=== PATIENT | female | born 1955 | race Caucasian/White ===

== ENCOUNTER 2018-07-07 17:39 | Emergency (ER) | payer MEDICARE, OTHER ==
[~2018-07-07] VITALS: Ht 165.1 cm; Wt 140.6 kg
[~2018-07-07 17:39] MED LIST: ALEVE220 MG PO; ASPIR 8181 MG PO; ASPIRIN EC81 M1 PO; AUGMENTIN 875875 MG PO; CARDIZEM CD180 MG PO; CARDIZEM30 MG PO; CARVEDILOL12.5 MG PO; CARVEDILOL3.125 MG PO; CENTRUM SILVER1 EAC4 PO; CIPRO500 MG PO; COUMADIN 10MG T10 M1 PO; COUMADIN 2 MG TA2 M1 PO; COUMADIN7.5 MG PO; CYCLOBENZAPRINE5 MG PO; DYAZIDE 37.5-21 EACH; FLEXERIL PO; FUROSEMIDE 40 M40 MG PO; FUROSEMIDE 80 M80 M1 PO; IBUPROFEN 200200 M1 PO; K-DUR 20 MEQ T20 MEQ PO; LISINOPRIL10 MG PO; MEDROL DOSPAK21 TA1 PO; METOLAZONE 5 MG5 MG PO; NAPROSYN500 MG PO; NEURONTIN 300300 M1 PO; NORCO 5-325 TA1 EACH PO; NYSTATIN1 EA10 MC; ONE DAILY HEAL1 EACH PO; PACERONE200 MG PO; SORINE 80 MG TA80 M1 PO; SORINE 80 MG TA80 MG PO; SOTALOL 120 MG120 M1 PO; UBIQUINOL100 MG PO; VICODIN 5-3001 EACH PO; VITAMIN B-1100 M1 PO; VITAMIN D400 UNI1 PO; XARELTO20 MG PO
[2018-07-07] MEDS ORDERED: ACETAMINOPHEN-1 EAC1 PO (18:25)
[2018-07-07 18:30] VITALS: BP 148/67
== END 2018-07-07 18:31 | disposition home or self-care (01) ==
LOC: M.ERS 17:39
DX: S16.1XXA Strain of muscle, fascia and tendon at neck level, initial encounter (principal); V69.09XA Driver of heavy transport vehicle injured in collision with other motor vehicles in nontraffic accident, initial encounter; Y93.89 Activity, other specified; Y92.89 Other specified places as the place of occurrence of the external cause; Y99.8 Other external cause status; E66.9 Obesity, unspecified; Z90.710 Acquired absence of both cervix and uterus

== ENCOUNTER → 2019-05-19 | Outpatient (CLI) | payer MEDICARE, OTHER ==
[~2019-05-19] MED LIST changes: +ACETAMINOPHEN-1 EAC1 PO
[2019-05-19 14:51] LABS: ALBUMIN 4.3 g/dL (3.4-5.0); DIRECT BILIRUBIN 0.1 mg/dL (<0.1-0.3); TOTAL BILIRUBIN 0.7 mg/dL (<0.1-1.0); TOTAL PROTEIN 8.8 g/dL (6.4-8.2)
== END ==
LOC: M.RAD 13:56
PROVIDERS: Internal Medicine Cardiovascular Disease
DX: J98.11 Atelectasis (principal); Z79.899 Other long term (current) drug therapy

== ENCOUNTER → 2019-12-13 | Outpatient (CLI) | payer MEDICARE, OTHER ==
[2019-12-13 14:10] LABS: ALBUMIN 3.9 g/dL (3.4-5.0); DIRECT BILIRUBIN 0.2 mg/dL (<0.1-0.3); TOTAL BILIRUBIN 0.7 mg/dL (<0.1-1.0); TOTAL PROTEIN 8.3 g/dL (6.4-8.2)
== END ==
LOC: M.RAD 13:12
PROVIDERS: Internal Medicine Cardiovascular Disease
DX: Z79.899 Other long term (current) drug therapy (principal)

== ENCOUNTER → 2020-07-17 | Outpatient (CLI) | payer MEDICARE, OTHER ==
[2020-07-17 12:47] LABS: ALBUMIN 3.5 g/dL (3.4-5.0); DIRECT BILIRUBIN 0.2 mg/dL (<0.1-0.3); TOTAL BILIRUBIN 0.7 mg/dL (<0.1-1.0); TOTAL PROTEIN 7.4 g/dL (6.4-8.2)
== END ==
LOC: M.LAB 11:20
PROVIDERS: ATTEND Internal Medicine Cardiovascular Disease
DX: J84.10 Pulmonary fibrosis, unspecified (principal); J98.4 Other disorders of lung; Z79.899 Other long term (current) drug therapy

== ENCOUNTER → 2020-07-20 | Outpatient (CLI) | payer MEDICARE, OTHER | LOC: M.CT 13:43 | PROVIDERS: ATTEND Internal Medicine Cardiovascular Disease | DX: I51.7 Cardiomegaly (principal); R93.89 Abnormal findings on diagnostic imaging of other specified body structures; I25.10 Atherosclerotic heart disease of native coronary artery without angina pectoris; E04.2 Nontoxic multinodular goiter; Z79.899 Other long term (current) drug therapy ==

== ENCOUNTER → 2020-09-25 | Outpatient (CLI) | payer MEDICARE, OTHER | LOC: M.RAD 12:17 | PROVIDERS: ATTEND Internal Medicine Cardiovascular Disease | DX: R93.89 Abnormal findings on diagnostic imaging of other specified body structures (principal); Z79.899 Other long term (current) drug therapy ==

== ENCOUNTER → 2021-04-01 | Outpatient (CLI) | payer MEDICARE, OTHER ==
--- NOTE | 2021-04-01 14:29 | 2DMMODE ---
[place] [address] 2 D/M-MODE ECHOCARDIOGRAM Name: ZAIDA ANDINON Room: [facility]#: [id number] Admission: 04/01/21 Attend Phys: Sasha Haley RN Discharge: Date of : 51 Date of Service: 04/01/21 1428 Report #: [id number] THIS REPORT FOR: cc: Ehsan Cooper MD, Matthew D MD Holkins,Venkata Smith MD [facility] ~ APPROVED REPORT Study performed: 04/01/2021 12:52:20 EXAM: Comprehensive 2D, Doppler, and color-flow Echocardiogram Patient Location: Out-Patient BSA: 2.32 HR: 96 bpm BP: 130/80 mmHg Other Information Study Quality: Good Indications Atrial Fibrillation Cardiomyopathy 2D Dimensions IVSd: 15.28 (7-11mm) LVOT Diam: 20.44 (18-24mm) LVDd: 39.86 mm PWd: 12.09 (7-11mm) Ascending Ao: 30.68 (22-36mm) LVDs: 25.97 (25-40mm) Aortic Root: 29.96 mm Volumes Left Atrial Volume (Systole) LA ESV Index: 29.80 mL/m2 Aortic Valve AoV Peak Bari.: 1.28 m/s AO Peak Gr.: 6.53 mmHg LVOT Max P.78 mmHg AO Mean Gr.: 3.66 mmHg LVOT Mean P.24 mmHg LVOT Max V: 1.09 m/s AO V2 VTI: 17.23 cm LVOT Mean V: 0.68 m/s NIGHAT (VTI): 3.19 cm2 LVOT V1 VTI: 16.76 [place] [address] 2 D/M-MODE ECHOCARDIOGRAM Name: ZAIDA ANDINO Room: [facility]#: [id number] Admission: 04/01/21 Attend Phys: Sasha Haley RN Discharge: Date of : 51 Date of Service: 04/01/21 1428 Report #: [id number] E/A Ratio: 5.14 MV Decel. Time: 165.76 ms MV E Max Bari.: 1.10 m/s MV PHT: 48.07 ms MVA (PHT): 4.58 cm2 TDI E/Lateral E': 7.33 E/Medial E': 8.46 Medial E' Bari.: 0.13 m/s Lateral E' Bari.: 0.15 m/s Pulmonary Valve PV Peak Bari.: 1.06 m/s PV Peak Gr.: 4.52 mmHg Left Ventricle The left ventricle is normal size. There is normal LV segmental wall motion. Mild to moderate concentric left ventricular hypertrophy. Left ventricular systolic function is borderline. LVEF is 50-55%. This study is not technically sufficient to allow evaluation of the LV diastolic function due to atrial fibrillation. Right Ventricle The right ventricle is normal size. The right ventricular systolic function is normal. Atria Left atrium is moderately dilated. The right atrium size is normal. Aortic Valve Mild aortic valve sclerosis. Trace aortic regurgitation. There is no aortic valvular stenosis. Mitral Valve Mild mitral annular calcification. Trace mitral regurgitation. No evidence of mitral valve stenosis. Tricuspid Valve The tricuspid valve is normal in structure. There is no tricuspid valve regurgitation noted. Pulmonic Valve The pulmonary valve is normal in structure. There is no pulmonic valvular regurgitation[place] [address] 2 D/M-MODE ECHOCARDIOGRAM Name: ZAIDA ANDINO CORTEZ Room: [facility]#: [id number] Admission: 04/01/21 Attend Phys: Sasha Haley RN Discharge: Date of : 51 Date of Service: 04/01/21 1428 Report #: [id number] The aortic root is normal in size. IVC is normal in size and collapses >50% with inspiration. Pericardium There is no pericardial effusion. <Conclusion> The left ventricle is normal size. Mild to moderate concentric left ventricular hypertrophy. Left ventricular systolic function is borderline. LVEF is 50-55%. This study is not technically sufficient to allow evaluation of the LV diastolic function due to atrial fibrillation. The right ventricle is normal size. Left atrium is moderately dilated. Mild aortic valve sclerosis. Trace aortic regurgitation. There is no aortic valvular stenosis. Mild mitral annular calcification. Trace mitral regurgitation. No evidence of mitral valve stenosis. The tricuspid valve is normal in structure. IVC is normal in size and collapses >50% with inspiration. There is no pericardial effusion. There is normal LV segmental wall motion. <ELECTRONICALLY SIGNED> By: Venkata Riddle MD, [facility] 04/01/21 1428 1428 1428 Venkata Riddle MD, FACC /INF
== END ==
LOC: M.CRD 03-27 13:00
PROVIDERS: ATTEND Registered Nurse
DX: I48.0 Paroxysmal atrial fibrillation (principal); R55 Syncope and collapse; I42.8 Other cardiomyopathies

== ENCOUNTER 2021-05-17 17:04 | Inpatient (IN) | payer MEDICARE, OTHER ==
[~2021-05-17] VITALS: Ht 165.1 cm; Wt 118.9 kg
--- NOTE | ~2021-05-17 | EMS ---
[place] [address] EMS Patient Care Report Name: ZAIDA ANDINO Room: [address] IN [facility]#: [id number] Admission: 05/17/21 Attend Phys: Erica Bryant Discharge: Date of : 51 Report #: [id number] THIS REPORT FOR: //name// Report Transmitted: 05/18/2021 15:50 EMS Care Summary [facility] Incident [id number] @ 05/17/2021 15:58 Incident Location [address] [place] [address] Patient ZAIDA ANDINO Female, 65 Years 1955 Patient Address [address] [place] [address] Patient History Other,Atrial Fibrillation, Patient Allergies No known allergies, Patient Medications Flexeril, Xarelto, Potassium, Losartan, Vicodin, Abilify, Aleve, Furosemide, Diltiazem, Chief Complaint No complaints of injury/illness Disposition Transported No Lights/[place] Dispatch Reason Falls Transported To [facility] Narrative Dispatch: [facility] was dispatched for a female patient who had fallen [facility] [address] [place] [address] EMS Patient Care Report Name: ZAIDA ANDINO Room: [address] IN [facility]#: [id number] Admission: 05/17/21 Attend Phys: Erica Bryant Discharge: Date of : 51 Report #: [id number] approx. 3 days prior. Unknown injuries. Med 1 copied tones and went en route emergent. Chief Complaint: Med 1 arrived on scene to find the patient lying prone on the floor of her bedroom. Patient is alert and does not appear to be in any distress or discomfort. Patient access was difficult due to hoarding. Multiple boxes were removed from the living room and hallway leading to the patient. Patient states she does not have any complaints of injury/illness, she had fallen and couldn't get up. History of present illness/LINDA: Patient states she was attempting to get into bed when she fell over boxes, and slid down her bed. Patient states she did not lose consciousness or hit her head. Patient states she had fallen approx. 3 days prior to EMS arrival. Family called 911 after finding the patient on the floor, and was unable to assist the patient up. Assessment: Airway: Clear, patent, and self maintained. Breathing: Clear, and equal bilaterally. Non labored. Circulation: Skin is pink, warm, and dry. Strong radial pulses. Disability: A&OX4, GCS 15. Exposures: No life threats were found. See "assessments" tab for further. Reason for ambulance: Patient had fallen 3 days prior, unable to get up. Requesting EMS treatment and transport to [facility]. Treatments: ALS assessment. 5 lead EKG showing atrial fibrillation. 20G IV LAC with LR. Vitals monitored throughout transport. Summary: With the assistance of EMS, the patient was placed onto the cot, secured in place, and placed into the ambulance for transport. The patient was placed onto the monitor and an IV was established. Med 1 went en route non emergent to [facility]. The patient's overall condition remained unchanged throughout transport. Radio report was given with no further questions or orders received. Med 1 arrived at destination and the patient was taken to room 15 in the ED where she was sheet transferred onto the bed. Report was given and signatures and paperwork were received. Med 1 returned back in service. Initial Vitals @16:21P: 120,R: 18,BP: 108/70,Glucose: 142,SpO2: 98, @16:56P: 130,R: 18,BP: 113/60,SpO2: 97, @16:41P: 145,R: 18,BP: 132/98,SpO2: 98, @16:51P: 133,R: 18,BP: 136/73,SpO2: 97, @16:26P: 126,R: 18,BP: 106/47,GCS: 15,SpO2: 98,Revised Trauma: 12, [address] [place] [address] EMS Patient Care Report Name: ZAIDA ANDINO Room: [address] ADM IN .R.#: [id number] Admission: 05/17/21 Attend Phys: Erica Bryant Discharge: Date of : 51 Report #: [id number] Assessments @16:05MENTAL:Person Oriented,Time Oriented,Event Oriented,Place Oriented,SKIN:HEENT:LUNG SOUNDS:ABDOMEN:PELVIS//GI:EXTREMITIES:Capillary Refill: Right Upper: < 2 Sec,PULSE:Radial: 2+ Normal,NEURO:@16:30MENTAL:Person Oriented,Time Oriented,Place Oriented,Event Oriented,SKIN:HEENT:LUNG SOUNDS:ABDOMEN:PELVIS//GI:EXTREMITIES:Capillary Refill: Right Upper: < 2 Sec,PULSE:Radial: 2+ Normal,NEURO: Impression No Complaints or Injury/Illness Noted Procedures @16:04ALS AssessmentResponse: UnchangedSucceeded@16:22Normal Saline (.9% NaCl) 400cc (20 ga) Site: Antecubital-LeftResponse: UnchangedSucceeded Timeline 15:56,Call Received 15:58,Dispatched 15:58,En Route 16:02,On Scene 16:04,At Patient 16:04,ALS Assessment,Response: UnchangedSucceeded, 16:21,BP: 108/70 M,PULSE: 120,RR: 18 R,SPO2: 98 Ox,ETCO2: ,B,PAIN: ,GCS: , 16:22,Normal Saline (.9% NaCl) 400cc 20 ga Site: Antecubital-Left,Response: UnchangedSucceeded, 16:24,Depart Scene 16:26,BP: 106/47 M,PULSE: 126,RR: 18 R,SPO2: 98 Ox,ETCO2: ,BG: ,PAIN: ,GCS: 15, 16:41,BP: 132/98 M,PULSE: 145,RR: 18 R,SPO2: 98 Ox,ETCO2: ,BG: ,PAIN: ,GCS: , 16:51,BP: 136/73 M,PULSE: 133,RR: 18 R,SPO2: 97 Ox,ETCO2: ,BG: ,PAIN: ,GCS: , 16:56,BP: 113/60 M,PULSE: 130,RR: 18 R,SPO2: 97 Ox,ETCO2: ,BG: ,PAIN: ,GCS: , 16:58,At Destination 18:03,Call Closed Disclaimer v1.1 Copyright 2020 [employer] This EMS Care Summary contains data elements from the applicable legal record (which may be displayed differently). It is designed to provide pertinent information for the following purposes: continuity of care, clinical quality, and state data reporting. The complete legal record is available to ED staff and administrators of the receiving hospital in [employer]s Patient Tracker. All data is provided "as is."
[2021-05-17 17:09] VITALS: BP 142/74
[2021-05-17 18:01] LABS: ABSOLUTE BASOPHILS 0.1 thou/uL (0.0-0.2); ABSOLUTE LYMPHOCYTES 1.2 thou/uL (0.8-5.3); ABSOLUTE MONOCYTES 0.9 thou/uL (0.0-1.2); ABSOLUTE NEUTROPHILS 7.6 thou/uL (1.6-8.1); BASOPHILS 0.5 %; EOSINOPHILS 0.4 %; HEMATOCRIT 39.5 % (37.0-47.0); HEMOGLOBIN 13.4 gm/dL (12.0-15.0); LYMPHOCYTES 12.6 %; MCV 85.3 fL (80.0-100.0); MONOCYTES 8.8 %; MPV 7.7 fl. (7.2-11.1); NUCLEATED RBCS 0 /100WBC; PLATELET COUNT* 465 thou/uL (150-400); POLYS 77.7 %; RBC 4.63 mil/uL (4.20-5.00); WBC 9.8 thou/uL (4.0-11.0)
[2021-05-17 18:08] LABS: CREATININE 1.2 mg/dL (0.6-1.3); POTASSIUM 3.5 mmol/L (3.5-5.1)
[2021-05-17 18:11] LABS: CALCIUM 12.6 mg/dL (8.5-10.1)
[2021-05-17 18:19] LABS: ALBUMIN 2.9 g/dL (3.4-5.0); TOTAL BILIRUBIN 1.1 mg/dL (<0.1-1.0); TOTAL PROTEIN 8.2 g/dL (6.4-8.2)
[2021-05-17 18:27] LABS: URINE BILIRUBIN NEGATIVE (Negative); URINE BLOOD TRACE (Negative); URINE CLARITY CLEAR; URINE COLOR YELLOW; URINE GLUCOSE-RANDOM NEGATIVE (Negative); URINE KETONES NEGATIVE (Negative); URINE LEUKOCYTES-REFLEX 1+ (Negative); URINE PROTEIN TRACE (Negative); URINE SPECIFIC GRAVITY 1.025 (1.005-1.030)
[2021-05-17 18:34] LABS: URINE NITRITE-REFLEX POSITIVE (Negative)
[2021-05-17 18:37] LABS: SQUAMOUS 4-10 Moderate /LPF (0-3); URINE RBC 0-2 Rare /HPF (0-2); URINE WBC-REFLEX 0-5 Rare /HPF (0-5)
[2021-05-17 18:38] LABS: WBC CLUMPS Few (None Seen)
[2021-05-17 18:39] LABS: CRYSTALS None Seen /LPF (None Seen); HYALINE CASTS 0-3 Few /LPF (None Seen)
[2021-05-17 19:52] VITALS: BP 93/69
[2021-05-17 21:00] VITALS: BP 139/77
[2021-05-18] VITALS: BP 121/67
--- NOTE | 2021-05-18 04:23 | NUR ---
RECIEVED PT FROM ER ARROUND 2029, ORIENTED BUT FORGETFUL. PT WAS UNKEPT AND WITH RASH AND REDNESS ON HER LOWER ABDOMEN AND GROIN. PT WAS PARTIALLY BLIND AND TALKED ABOUT HER UP COMING CATARACT SX. ACCORDING TO HER, SHE HAD ON AND OFF SCIATIC NERVE PAIN. PT WAS AFIB AT 120-160. HIMS INFORMED WITH ORDERS MADE AND CARRIED OUT. PT HAVE REDNESS ON HER BOTH KNEES AND ABRAISION ON LEFT TOES. PT I PAIN WHEN RIGHT ARM IS MOVED. NO DISTRESS. CONTINUE MONITORING AND TOWARDS GOALS. HR AT 110-120.
[2021-05-18 04:26] VITALS: BP 117/67
[2021-05-18 08:00] VITALS: BP 141/72
[2021-05-18 12:00] VITALS: BP 122/61
[2021-05-18 13:11] LABS: ALBUMIN 2.7 g/dL (3.4-5.0); CREATININE 1.2 mg/dL (0.6-1.3); POTASSIUM 3.8 mmol/L (3.5-5.1); TOTAL BILIRUBIN 0.5 mg/dL (<0.1-1.0); TOTAL PROTEIN 7.9 g/dL (6.4-8.2)
[2021-05-18 13:12] LABS: CREATININE 1.2 mg/dL (0.6-1.3); PHOSPHORUS* 2.4 mg/dL (2.5-4.9)
[2021-05-18 13:13] LABS: CALCIUM 12.4 mg/dL (8.5-10.1); CALCIUM 12.7 mg/dL (8.5-10.1)
--- NOTE | 2021-05-18 13:59 | EKG ---
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 : 1955 Requested By: Nghia Mcnamara Order Number: [id number] MD: Joesph Llanos Measurements Intervals [place] Rate: 123 P: NE: QRS: 44 QRSD: 90 T: 261 QT: 345 QTc: 494 Interpretive Statements Atrial fibrillation Ventricular premature complex Nonspecific repol abnormality, diffuse leads Compared to ECG 05/24/2016 13:25:57 Ventricular premature complex(es) now present Early repolarization now present Sinus rhythm no longer present Electronically Signed On 05-18-2021 13:59:15 CDT by Joesph Llanos [email or web address] <ELECTRONICALLY SIGNED> By: Joesph Llanos MD, FACC 05/18/21 1359 1730 1730 Joesph Llanos MD, FACC /EPI
[2021-05-18 16:00] VITALS: BP 119/70
--- NOTE | 2021-05-18 18:39 | NUR ---
PATIENT RESTING IN BED. SAT 91% ON ROOM AIR. IV TO LEFT AC WITH NORMAL SALINE INFUSING AT 80ML/HR. CALCIUM 12.4, DOCTOR NOTIFIED NO NEW ORDERS. BED IN LOW/LOCKED POSTION. CALL LIGHT WITHIN REACH. X2 ASSIST TO BEDSIDE COMMODE. NO QUESTIONS OR CONCERNS VOICED.
[2021-05-18 20:00] VITALS: BP 134/64
[2021-05-19 00:10] VITALS: BP 138/77
--- NOTE | 2021-05-19 02:23 | NUR ---
PT ALERT ORIENTED. 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 ON RA. IV INFUSING.
[2021-05-19 03:45] VITALS: BP 120/70
[2021-05-19 04:03] LABS: ABSOLUTE LYMPHOCYTES 0.9 thou/uL (0.8-5.3); ABSOLUTE MONOCYTES 0.8 thou/uL (0.0-1.2); BASOPHILS 0.1 %; HEMATOCRIT 36.9 % (37.0-47.0); HEMOGLOBIN 12.1 gm/dL (12.0-15.0); LYMPHOCYTES 10.8 %; MCH 28.3 pg (26.0-34.0); MCHC 32.8 g/dL (28.0-37.0); MCV 86.3 fL (80.0-100.0); MONOCYTES 8.8 %; NUCLEATED RBCS 0 /100WBC; PLATELET COUNT* 383 thou/uL (150-400); POLYS 80.3 %; RBC 4.28 mil/uL (4.20-5.00); RDW-CV 15.4 % (10.5-14.5); WBC 8.8 thou/uL (4.0-11.0)
[2021-05-19 04:10] LABS: CREATININE 1.2 mg/dL (0.6-1.3); POTASSIUM 4.2 mmol/L (3.5-5.1)
[2021-05-19 04:15] LABS: CALCIUM 12.3 mg/dL (8.5-10.1)
[2021-05-19 04:16] LABS: CHOLESTEROL 227 mg/dL (<200); HDL CHOLESTEROL 40 mg/dL (>40); LDL CHOLESTEROL 163 mg/dL (<100); TC:HDL 5.7 Ratio (Not establshd); TRIGLYCERIDE 122 mg/dL (<150); VLDL 24 mg/dL (<40)
[2021-05-19 04:21] LABS: SERUM ASSESSMENT CLEAR
[2021-05-19 08:47] VITALS: BP 128/72
[2021-05-19 16:00] VITALS: BP 141/72
[2021-05-19 20:00] VITALS: BP 122/77
[2021-05-20] VITALS: BP 129/78
[2021-05-20 02:05] LABS: GLYCOHEMOGLOBIN (HGB A1C) 5.3 % (4.8-5.6)
[2021-05-20 04:00] VITALS: BP 142/85
[2021-05-20 04:17] LABS: ABSOLUTE EOSINOPHILS 0.3 thou/uL (0.0-0.7); ABSOLUTE LYMPHOCYTES 1.8 thou/uL (0.8-5.3); ABSOLUTE MONOCYTES 0.7 thou/uL (0.0-1.2); ABSOLUTE NEUTROPHILS 4.2 thou/uL (1.6-8.1); BASOPHILS 0.5 %; EOSINOPHILS 3.6 %; HEMATOCRIT 33.8 % (37.0-47.0); HEMOGLOBIN 11.3 gm/dL (12.0-15.0); LYMPHOCYTES 26.2 %; MCH 28.9 pg (26.0-34.0); MCHC 33.4 g/dL (28.0-37.0); MCV 86.5 fL (80.0-100.0); MONOCYTES 9.8 %; MPV 8.2 fl. (7.2-11.1); NUCLEATED RBCS 0 /100WBC; PLATELET COUNT* 312 thou/uL (150-400); POLYS 59.9 %; RBC 3.91 mil/uL (4.20-5.00); RDW-CV 15.5 % (10.5-14.5)
[2021-05-20 04:36] LABS: ALBUMIN 2.4 g/dL (3.4-5.0); CREATININE 1.2 mg/dL (0.6-1.3); POTASSIUM 3.8 mmol/L (3.5-5.1); TOTAL BILIRUBIN 0.2 mg/dL (<0.1-1.0); TOTAL PROTEIN 6.3 g/dL (6.4-8.2)
[2021-05-20 08:15] VITALS: BP 142/82
--- NOTE | 2021-05-20 10:53 | NUR ---
Nutrition: Pt admitted with weakness. Has cervical spine stenosis. Seen for high BMI today. Wt: 262#. Laying in bed on back during visit. Regular diet. Pt stated she is eating fine. Albumin 2.4, prealb 18.7. Pt had no nutrition questions at this time. Consider mild risk.
[2021-05-20 12:00] VITALS: BP 136/79
--- NOTE | 2021-05-20 16:10 | NUR ---
Pt is A&O. Resides at home alone. Normally independent. No DME. No HH. Hx of SNF at [facility]. Pt in agreement with going to SNF, faxed referral to [facility], Pt to dc there today, facility to pickle solution maker at 430. Faxed dc orders. Chart copied. Nurse report number is [phone]. Pt to update family/friend.
--- NOTE | 2021-05-20 16:23 | NUR ---
PT A&OX4 VSS, FORGETFUL AT TIMES. HX OF FALLS AT HOME, FALL PRECAUTIONS IN PLACE. A FIB/FLUTTER ON MONITOR. PT REMAINS ON ROOM AIR. LAST BM THIS SHIFT. INTERMITTENT INCONTINENCE. UP SBA W/ WALKER AND GAIT BELT. PT BELONGINGS PACKED AND ACCPOMPANIED PT TO IGNITE. REPORT CALLED TO [place]. 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
[2021-05-21 16:06] LABS: GLOBULIN TOTAL 3.5 g/dL (2.2-3.9); M-SPIKE Not Observed g/dL (Not Observed)
== END 2021-05-20 16:20 | DRG 690 ==
LOC: M.ERS 17:04 → M.TBA-ER 18:09 → M.2W 18:09
PROVIDERS: Family Medicine; Internal Medicine; Psychiatry & Neurology Neurology; ADMIT Internal Medicine; ATTEND Internal Medicine
DX: N39.0 Urinary tract infection, site not specified (principal); Z68.41 Body mass index [BMI] 40.0-44.9, adult; E83.52 Hypercalcemia; J32.4 Chronic pansinusitis; E03.9 Hypothyroidism, unspecified; M48.02 Spinal stenosis, cervical region; E66.9 Obesity, unspecified; M19.91 Primary osteoarthritis, unspecified site; B96.20 Unspecified Escherichia coli [E. coli] as the cause of diseases classified elsewhere; Z20.822 Contact with and (suspected) exposure to COVID-19; Z90.710 Acquired absence of both cervix and uterus; Z86.79 Personal history of other diseases of the circulatory system; Z79.01 Long term (current) use of anticoagulants; Z79.899 Other long term (current) drug therapy; Z91.14 Patient's other noncompliance with medication regimen

== ENCOUNTER → 2021-10-10 | Outpatient (CLI) | payer MEDICARE, OTHER | LOC: M.RAD 13:10 | PROVIDERS: ATTEND Family Medicine | DX: Z12.31 Encounter for screening mammogram for malignant neoplasm of breast (principal); D35.1 Benign neoplasm of parathyroid gland; N63.20 Unspecified lump in the left breast, unspecified quadrant; M81.0 Age-related osteoporosis without current pathological fracture; Z78.0 Asymptomatic menopausal state; Z91.89 Other specified personal risk factors, not elsewhere classified ==

== ENCOUNTER → 2021-10-22 | Outpatient (CLI) | payer MEDICARE, OTHER | LOC: M.ULTRA 09:50 | PROVIDERS: ATTEND Family Medicine | DX: N63.24 Unspecified lump in the left breast, lower inner quadrant (principal) ==

== ENCOUNTER → 2021-10-25 | Outpatient (CLI) | payer MEDICARE, OTHER ==
--- NOTE | 2021-11-12 11:07 | PATH ---
[address] [address] PATHOLOGY RPT PROCEDURE Name: AKILAH ROSALESN Room: [facility] Ton[place]#: [id number] Admission: 10/25/21 Date of : 51 Discharge: Report #: [id number] Path Case #: [id number] [facility] Accession Number: [id number] . 01 Material submitted: . breast - LEFT BREAST BIOPSY. Modifiers: left . 01 Clinical history: . LEFT BREAST MASS 7:00 2CMFN; .37 X .38 X .40 . 02 Diagnosis: Breast "left mass 7:00 2CFN", needle biopsy: - Papilloma/sclerosing papillary lesion, with focal atypical ductal hyperplasia. - Negative for malignancy. - Please see comment. LBQ 11/11/2021 1333 Local . 02 Comment: The biopsy of the left breast mass consists of a papillary/sclerosing lesion which demonstrates exuberant usual ductal hyperplasia, and in some areas based on some morphology, and the focal absence of CK5/6 reactivity, ER reactivity, and absent myoepithelial cells, a diagnosis of atypical ductal hyperplasia is favored. There is no evidence of malignancy. . The case is seen in co-review, with consensus, by Dr. Robin Viveros on 11/06/2021. (MLK/db; 11/07/2021) . 02 Electronically signed: . Jennifer Barajas MD, Pathologist NPI- [id number] . 01 Gross description: . Received in formalin labeled "Akilah Rosales, left breast" and further labeled on the requisition as "7:00 2 cm FN" are multiple cylindrical yellow-felton soft tissue cores measuring in aggregate 2.7 x 1.5 x 0.3 cm. The specimen is submitted entirely in cassettes A1-A3. The specimen is removed from the patient at 1401 and placed in formalin at 1402 on 10/25/2021. The specimen is removed from formalin at 1840 on 10/27/2021. ([facility]; 10/26/2021) PSYCHIATRIC/PSYCHIATRIC 10/26/2021 0821 Local . 02 Microscopic: . Immunohistochemical stain results (properly controlled) CK5/6 (A1, A2, A3) - Stains majority of ductal epithelial cells; some focally negative P63 (A1, A2, A3) - Stains peripheral ductal myoepithelial cells and [facility] [address] [place] [address] PATHOLOGY RPT PROCEDURE Name: AKILAH ROSALES Room: [facility] DEANDRE [place]#: [id number] Admission: 10/25/21 Date of : 51 Discharge: Report #: [id number] Path Case #: [id number] majority of intraductal myoepithelial cells Myosin (A1, A2, A3) - Stains peripheral ductal myoepithelial cells and majority of intraductal myoepithelial cells Calponin (A1, A2, A3) - Stains peripheral ductal myoepithelial cells and majority of intraductal myoepithelial cells ER (A1, A2, A3) - Patchy staining of intraductal epithelial cells . 02 Pathologist provided ICD-10: D24.2, N62 . 02 CPT . 630907, K36242, I22059 Specimen Comment: A courtesy copy of this report has been sent to [phone] Specimen Comment: [phone], Specimen Comment: Report sent to , DR BARKER / DR MCCLENDON Specimen Comment: A duplicate report has been generated due to demographic updates. Performed at: 01 [facility] [address] [facility] [address], [place] [id number] MD Zuhair Montes MD Phone: [phone] Performed at: [address] [facility] [id number] [id number] MD Bienvenido Gomez MD Phone: [phone]
== END ==
LOC: M.ULTRA 10-24 08:30
PROVIDERS: ATTEND Family Medicine
DX: D24.2 Benign neoplasm of left breast (principal); N62 Hypertrophy of breast; R92.8 Other abnormal and inconclusive findings on diagnostic imaging of breast

== ENCOUNTER → 2021-11-20 | Outpatient (CLI) | payer MEDICARE, OTHER ==
[~2021-11-20] MED LIST changes: +DILTIAZEM ER180 M2 PO; +KLOR-CON M2020 MEQ PO; +LASIX 80 MG TAB80 MG PO; +LOSARTAN POTASS50 MG PO; +MAPAP500 MG PO; +MOTRIN IB200 M2 PO; +VICODIN HP 10-1 EAC1 PO
== END | disposition home or self-care (01) ==
LOC: M.ULTRA 11:00
PROVIDERS: ATTEND Surgery
DX: C50.912 Malignant neoplasm of unspecified site of left female breast (principal); R92.1 Mammographic calcification found on diagnostic imaging of breast; F32.9 Major depressive disorder, single episode, unspecified; I48.91 Unspecified atrial fibrillation; I48.92 Unspecified atrial flutter; Z98.890 Other specified postprocedural states; Z79.899 Other long term (current) drug therapy; Z79.01 Long term (current) use of anticoagulants

== ENCOUNTER → 2021-12-02 | Outpatient (CLI) | payer MEDICARE, OTHER | LOC: M.LAB 10:52 | PROVIDERS: ATTEND Surgery | DX: Z01.812 Encounter for preprocedural laboratory examination (principal); Z20.822 Contact with and (suspected) exposure to COVID-19 ==

== ENCOUNTER → 2021-12-03 | Day surgery (SDC) | payer MEDICARE, OTHER ==
--- NOTE | ~2021-12-03 | OP ---
[address] [address] OPERATIVE REPORT Name: ZAIDA ANDINO CORTEZ Room: [facility].#: [id number] Admission: 12/03/21 Attend Phys: Fabiana Cox DO Discharge: Date of : 51 Report #: [id number] THIS REPORT FOR: cc: Ehsan Cooper MD, Matthew D MD [facility],Medical Records Staff ~ For Operative report details, please see the Post-Operative note. By: 0641Medical Records Staff DIANA /DARLINE
[2021-12-03 11:27] LABS: HEMATOCRIT 43.5 % (37.0-47.0); HEMOGLOBIN 14.1 gm/dL (12.0-15.0); MCHC 32.5 g/dL (28.0-37.0); MCV 89.4 fL (80.0-100.0); MPV 7.3 fl. (7.2-11.1); RBC 4.86 mil/uL (4.20-5.00); RDW-CV 16.6 % (10.5-14.5); WBC 6.2 thou/uL (4.0-11.0)
[2021-12-03 11:35] LABS: CALCIUM 10.3 mg/dL (8.5-10.1); CREATININE 0.9 mg/dL (0.6-1.3); POTASSIUM 4.4 mmol/L (3.5-5.1)
--- NOTE | 2021-12-03 12:59 | EKG ---
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 : 1955 Requested By: Fabiana Cox Order Number: [id number] Reading MD: Venkata Riddle Measurements Intervals [place] Rate: 63 P: 131 [place]: 234 QRS: 38 QRSD: 111 T: 49 QT: 458 QTc: 469 Interpretive Statements Atrial fibrillation with a moderate ventricular response Baseline wander in lead(s) V6 Compared to ECG 05/17/2021 17:30:00 The ventricular response to atrial fibrillation has decreased Nonspecific ST-T alterations have occurred Electronically Signed On 12-03-2021 12:59:14 SUSTAINABILITY ENGINEER by Venkata Riddle [email or web address] <ELECTRONICALLY SIGNED> By: Venkata Riddle MD, FACC 12/03/21 1259 1200 1200 Venkata Riddle MD, FAC /EPI
--- NOTE | 2021-12-10 12:06 | PATH ---
[address] [address] PATHOLOGY RPT PROCEDURE Name: ZAIDA ANDINO Room: [facility] M.Henry.#: [id number] Admission: 12/03/21 Date of : 51 Discharge: Report #: [id number] Path Case #: [id number] [facility] Accession Number: [id number] . 01 Material submitted: . breast - LEFT BREAST LUMPECTOMY. Modifiers: left . 01 Clinical history: . PAPILLOMA LEFT BREAST STITCHES: LONG LATERAL, SHORT SUPERIOR . 02 Diagnosis: Left breast lumpectomy: - Benign breast tissue with residual ductal papilloma adjacent to prior biopsy site (including biopsy clip and cylindrical marker), usual ductal epithelial hyperplasia, apocrine change and scattered luminal calcifications, negative for atypia. (ARIANA:geremias; 12/05/2021) S 12/05/2021 1309 Local . 02 Electronically signed: . Robin Viveros MD, Pathologist NPI- [id number] . 01 Gross description: . Fixative: Formalin Labeled: Left breast Specimen received: Intact but previously markedly compressed and as a result the surgical margins may be distorted Oriented: the stitches are designated per the requisition as long lateral and short superior Weight: 45 g Dimensions: 7.0 cm superior to inferior, 5.2 cm medial to lateral, 2.1 cm superficial to deep . The specimen is inked as follows: superior-red inferior-blue superficial-green deep-black lateral-orange medial-yellow . Sectioned from: Superior to inferior Number of slices: 17 Lesion: 1.2 cm superior to inferior, 0.6 cm medial to lateral and 0.8 cm superficial to deep Lesion located in slices 10-14 [place] [address] PATHOLOGY RPT PROCEDURE Name: ZAIDA ANDINO Room: [facility]#: [id number] Admission: 12/03/21 Date of : 51 Discharge: Report #: [id number] Path Case #: [id number] Located inferior (slice 15), adjacent to the mass is a suspicious fibrotic area (0.5 cm medial to lateral, 0.4 cm superficial to deep and 0.3 cm superior to inferior). If the fibrotic area is contiguous with the mass then the new dimensions would be 1.5 cm superior to inferior, 0.6 cm medial to lateral and 0.8 cm superficial to deep . Lesion distance to margins: 2.7 cm to superior 1.2 cm to inferior 0.6 cm to superficial, slice 13 and 14 0.5 cm to deep, slice 11 1.8 cm to lateral, slice 11 1.1 cm to medial, slice 13 . Biopsy clip: silver metallic clamp-like biopsy clip in slice 10 with a biopsy cavity in slices 12-14 that contains a clear, colorless, plastic cylinder containing mechanical parts. Uninvolved breast parenchyma: Fatty and homogenous with less than 5% fibrous tissue . The specimen is submitted as follows: A1: Slice 1, superior margin, represented A2: Slice 11, represented A3: Slice 12, represented A4: Slice 13, represented A5-A6: Slice 14, represented A7: Slice 15 represented, to show suspicious fibrous tissue, entirely submitted A8: Slice 17, inferior margin, represented . Cold ischemic time: 13 minutes Time placed in formalin: 29 hours ([facility]; 12/04/2021) DKA/DKA 12/04/2021 1441 Local . 02 Pathologist provided ICD-10: D24.2, N62 . 02 CPT . 834361 Specimen Comment: A courtesy copy of this report has been sent to [phone] Specimen Comment: [phone] Specimen Comment: Report sent to / DR CLANCY Specimen Comment: A duplicate report has been generated due to demographic updates. Performed at: [address], [place], [place] [id number] [place] [address] PATHOLOGY RPT PROCEDURE Name: ZAIDA ANDINO [id number] Admission: 12/03/21 Date of : 51 Discharge: Report #: [id number] Path Case #: [id number] MD Zuhair Montes MD Phone: [phone] Performed at: [address] [place] [id number] MD Robin Viveros MD Phone: [phone]
== END | disposition home or self-care (01) ==
LOC: M.SUR 06:39
PROVIDERS: ATTEND Surgery
DX: N60.82 Other benign mammary dysplasias of left breast (principal); D24.2 Benign neoplasm of left breast; I10 Essential (primary) hypertension; Z98.890 Other specified postprocedural states; Z79.899 Other long term (current) drug therapy